=== PATIENT | female | born 2005 | race Caucasian/White ===

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

== ENCOUNTER → 2024-07-12 12:09 | Outpatient (CLI) | payer OTHER, SELFPAY ==
[2024-07-12 13:54] LABS: Influenza A - CEPHEID Flu A NEGATIVE (NEGATIVE); Influenza B - CEPHEID Flu B NEGATIVE (NEGATIVE); Respiratory Syncytial Virus Negative (Negative)
[2024-07-12 14:31] LABS: COVID-19 CEPHEID 4-PLEX PCR Negative (Negative)
== END ==
LOC: LAB 12:22
PROVIDERS: Family Provider Family Medicine; PCP Family Medicine; Visit Provider Physician Assistant
DX: B34.9 Viral infection, unspecified (principal)
CPT/HCPCS: 0241U

== ENCOUNTER → 2024-07-12 12:28 | Outpatient (CLI) | payer OTHER, SELFPAY ==
--- NOTE | 2024-07-12 12:32 | DI.US.S_ITS ---
PROCEDURE: US ABDOMEN LIMITED INDICATIONS: Left sided chest pain; shortness of breath TECHNIQUE: Real-time focused scanning was performed of the abdomen, with image documentation. COMPARISON: [facility], CR, XR CHEST 2V, 07/12/2024, 11:48. FINDINGS: No pleural effusion seen, no perisplenic peritoneal free fluid found. No definite visceral abnormality seen. IMPRESSION: Please also refer to chest plain film raising concern for a subtle finding of possible left lower lobe pneumonia. Lower lung pneumonia can produce upper abdominal pain. Dictated by: Pavan Copeland M.D. on 07/12/2024 at 12:59 Approved by: Pavan Copeland M.D. on 07/12/2024 at 13:01
--- NOTE | 2024-07-12 12:32 | DI.RAD.S_ITS ---
PROCEDURE: XR CHEST 2V INDICATIONS: Left sided chest pain; shortness of breath TECHNIQUE: 2 views of the chest were acquired. COMPARISON: None. FINDINGS: Surgical changes and devices: None. Lungs and pleura: Lungs are clear on the right but there is a subtle finding of slight increased radiodensity over the lower thoracic spine on the lateral view and vague indistinct margination along several of the lower vascular borders of the left lower lobe. No pleural effusions or pneumothorax. Mediastinum: Mediastinal contours are normal. Heart size is normal. Bones and chest wall: No suspicious bony abnormalities. Soft tissues appear unremarkable. IMPRESSION: Subtle findings suggestive of mild or early pneumonia left lower lobe. No associated effusion. Dictated by: Pavan Copeland M.D. on 07/12/2024 at 12:57 Approved by: Pavan Copeland M.D. on 07/12/2024 at 12:59
[2024-07-12 14:24] LABS: Monotest Negative (Negative)
[2024-07-12 14:25] LABS: Add Manual Diff / Slide Review NO; Basophils Absolute Auto 100 /uL (0-100); Basophils Percent Auto 0.8 % (0-2); Eosinophils Absolute Auto 100 /uL (0-450); Eosinophils Percent Auto 1.6 % (2-4); Hematocrit 41.2 % (36-46); Lymphocytes Absolute Auto 2000 /uL (1100-4500); Lymphocytes Percent Auto 30.2 % (25-40); Mean Corpuscular HGB Conc 34.1 % (30-36); Mean Corpuscular Hemoglobin 28.9 PG (26-34); Mean Corpuscular Volume 84.8 fL (80-100); Monocytes Absolute Auto 400 /uL (0-900); Monocytes Percent Auto 6.8 % (3-14); Neutrophils Absolute Auto 3900 /uL (1500-7000); Neutrophils Percent Auto 60.6 % (50-75); Platelet Count 328 X10^3/uL (150-400); Red Blood Cell Count 4.86 X10^6/uL (4.0-5.2); White Blood Cell Count 6.5 X10^3/uL (4.5-11.0)
[2024-07-12 14:41] LABS: Alanine Aminotransferase 16 IU/L (<35); Albumin 5.2 g/dL (3.5-5.0); Albumin Globulin Ratio 2.1 (1.0-2.8); Alkaline Phosphatase 47 U/L (38-126); Aspartate Aminotransferase 25 IU/L (14-36); BUN Creatinine Ratio 16.4 (6-22); Bilirubin Total 0.8 mg/dL (0.2-1.3); Blood Urea Nitrogen 11 mg/dL (7-17); Calcium 9.7 mg/dL (8.4-10.2); Carbon Dioxide 25 mmol/L (22-32); Chloride 102 mmol/L (98-107); Estimated Glomerular Filt Rate > 60 mL/min (>60); Globulin 2.5 g/dL (1.7-4.1); Glucose 78 mg/dL (70-99); HEMOLYSIS < 15 (0-50); Potassium 4.3 mmol/L (3.4-5.1); Sodium 138 mmol/L (137-145); Total Protein 7.7 g/dL (6.3-8.2)
== END ==
PROVIDERS: Family Provider Family Medicine; PCP Family Medicine; Referring Provider Physician Assistant; Visit Provider Physician Assistant
DX: R07.9 Chest pain, unspecified (principal); R06.02 Shortness of breath; R10.12 Left upper quadrant pain; B34.9 Viral infection, unspecified; R11.0 Nausea; R53.83 Other fatigue
CPT/HCPCS: 0241U; 36415; 71046; 76705; 80053; 85025; 86318